=== PATIENT | female | born 1975 | race Caucasian/White ===

== ENCOUNTER 2018-05-08 09:29 | Emergency (ER) | payer OTHER | END 2018-05-08 11:03 | disposition home or self-care (01) | LOC: FTE 09:29 | DX: J00 Acute nasopharyngitis [common cold] (principal); R40.2412 Glasgow coma scale score 13-15, at arrival to emergency department | CPT/HCPCS: 99282; Z7502 ==

== ENCOUNTER 2018-10-13 09:53 | Emergency (ER) | payer OTHER ==
[2018-10-13 11:11] LABS: URINE PH (Dip) POC 5.5 (5.0-8.5)
[2018-10-13 11:11] LABS: URINE BLOOD (Dip) POC Trace-intact (NEGATIVE); URINE GLUCOSE (Dip) POC Negative (NEGATIVE); URINE KETONES (Dip) POC Negative (NEGATIVE); URINE LEUKOCYTE EST (Dip) POC Negative (NEGATIVE); URINE NITRITE (Dip) POC Negative (NEGATIVE); URINE TOTAL PROTEIN POC Negative (NEGATIVE)
== END 2018-10-13 11:32 | disposition home or self-care (01) ==
LOC: FTE 09:53
DX: N39.0 Urinary tract infection, site not specified (principal)
CPT/HCPCS: 81003; 81025; 87086; 99283